=== PATIENT | male | born 1955 | race Caucasian/White ===

== ENCOUNTER 2021-12-26 14:19 | Outpatient (CLI) | payer OTHER | END 2021-12-26 14:20 | disposition home or self-care (01) | LOC: CSHWCC 14:19 | PROVIDERS: ATTEND Nurse Practitioner Family | DX: L98.492 Non-pressure chronic ulcer of skin of other sites with fat layer exposed (principal) | CPT/HCPCS: 99203; G0463 ==

== ENCOUNTER 2022-01-16 10:42 | Outpatient (CLI) | payer OTHER | END 2022-01-16 10:43 | disposition home or self-care (01) | LOC: CSHWCC 10:42 | PROVIDERS: ATTEND Preventive Medicine Undersea and Hyperbaric Medicine | DX: L98.492 Non-pressure chronic ulcer of skin of other sites with fat layer exposed (principal) | CPT/HCPCS: 99212; G0463 ==

== ENCOUNTER 2022-01-30 10:48 | Outpatient (CLI) | payer OTHER | END 2022-01-30 10:49 | disposition home or self-care (01) | LOC: CSHWCC 10:48 | PROVIDERS: ATTEND Preventive Medicine Undersea and Hyperbaric Medicine | DX: L98.492 Non-pressure chronic ulcer of skin of other sites with fat layer exposed (principal) | CPT/HCPCS: 99212; G0463 ==

== ENCOUNTER 2022-02-14 09:26 | Outpatient (CLI) | payer OTHER | END 2022-02-14 09:27 | disposition home or self-care (01) | LOC: CSHWCC 09:26 | PROVIDERS: ATTEND Preventive Medicine Undersea and Hyperbaric Medicine | DX: L98.492 Non-pressure chronic ulcer of skin of other sites with fat layer exposed (principal) | CPT/HCPCS: 99213; G0463 ==

== ENCOUNTER → 2022-03-14 | Outpatient (CLI) | payer OTHER | LOC: CSHWCC 14:57 | PROVIDERS: ATTEND Preventive Medicine Undersea and Hyperbaric Medicine | DX: S21.201D Unspecified open wound of right back wall of thorax without penetration into thoracic cavity, subsequent encounter (principal); L98.492 Non-pressure chronic ulcer of skin of other sites with fat layer exposed | CPT/HCPCS: 17250; 99212; G0463 ==

== ENCOUNTER 2022-04-11 10:14 | Outpatient (CLI) | payer OTHER | END 2022-04-11 10:15 | disposition home or self-care (01) | LOC: CSHWCC 10:14 | PROVIDERS: ATTEND Nurse Practitioner Family | DX: L98.492 Non-pressure chronic ulcer of skin of other sites with fat layer exposed (principal); S21.201D Unspecified open wound of right back wall of thorax without penetration into thoracic cavity, subsequent encounter ==